=== PATIENT | female | born 1985 | race Caucasian/White ===

== ENCOUNTER → 2024-03-24 17:31 | Outpatient (CLI) | payer OTHER, SELFPAY ==
[2024-03-24 18:59] LABS: Hemoglobin A1C% w Est Avg Glu 4.9 % (4.0-6.0)
[2024-03-24 19:14] LABS: Follicle Stimulating Hormone 7.39 mIU/mL; Luteinizing Hormone 3.88 mIU/mL
[2024-03-24 19:27] LABS: TSH w/ Reflex to FT4 1.37 uIU/mL (0.47-4.68)
[2024-03-24 19:35] LABS: Prolactin 18.5 ng/mL (3.0-18.6)
[2024-04-01 09:09] LABS: Estrogen 94 pg/mL (.)
[2024-04-10 21:00] LABS: % Free Progesterone 2.7 % (.); Free Progesterone 0.95 ng/dL (.); Progesterone, Serum 35 ng/dL (.)
== END ==
PROVIDERS: PCP Family Medicine; Referring Provider Family Medicine; Visit Provider Family Medicine
DX: N97.9 Female infertility, unspecified (principal)
CPT/HCPCS: 36415; 82672; 83001; 83002; 83036; 84144; 84146; 84443; 84999

== ENCOUNTER → 2024-07-05 15:42 | Outpatient (CLI) | payer OTHER, SELFPAY ==
--- NOTE | 2024-07-05 16:00 | DI.US.S_ITS ---
PROCEDURE: US PELVIC COMPLETE INDICATIONS: hx of uterine polyp TECHNIQUE: Real-time scanning was performed of the pelvic organs, with image documentation. Additional endovaginal scanning was necessary due to incomplete visualization of the adnexal and endometrial structures by transabdominal scanning. COMPARISON: None. FINDINGS: Uterus: Uterus is anteverted and normal in size at 7.1 x 4.1 x 3.2 cm. The myometrium is homogeneous without mass. The endometrium measures 8.2 mm combined thickness. No endometrial masses. Normal vascularity. Tiny amount of anechoic fluid in cervix. Normal cervical morphology vascularity. Ovaries: The right ovary measures 3.7 x 2.7 x 1.6 cm, with a calculated ovarian volume of 8.3 cc. The left ovary measures 3.4 x 2.4 x 1.4 cm, with a calculated ovarian volume of 5.9 cc. The ovaries have a normal sonographic appearance. Less than 12 follicles can be seen in each ovary. No adnexal masses are seen. Other: No pathologic free abdominal or pelvic fluid. IMPRESSION: Normal pelvic ultrasound without recurrence endometrial polyp. We strive to produce accurate, complete, and clear reports of imaging services. To assist us in improving patient care, this report was composed using standard report templates and voice recognition software. Therefore, it may contain abnormal punctuation, insertions and/or omissions. Occasional wrong-word or sound-alike substitutions may occur. Though we review the report and make efforts to correct it, we do recommend that the report be read carefully in proper context to recognize any text inaccuracies. Dictated by: Luisa Guajardo M.D. on 07/05/2024 at 22:02 Approved by: Luisa Guajardo M.D. on 07/05/2024 at 22:04
[2024-07-05 16:54] LABS: Add Manual Diff / Slide Review NO; Basophils Absolute Auto 100 /uL (0-100); Basophils Percent Auto 0.7 % (0-2); Eosinophils Absolute Auto 200 /uL (0-450); Eosinophils Percent Auto 1.8 % (2-4); Hematocrit 41.7 % (36-46); Hemoglobin 14.1 g/dL (12.0-16.0); Lymphocytes Absolute Auto 3800 /uL (1100-4500); Lymphocytes Percent Auto 40.5 % (25-40); Mean Corpuscular HGB Conc 33.9 % (30-36); Mean Corpuscular Hemoglobin 30.6 PG (26-34); Mean Corpuscular Volume 90.4 fL (80-100); Monocytes Absolute Auto 700 /uL (0-900); Monocytes Percent Auto 7.8 % (3-14); Neutrophils Absolute Auto 4600 /uL (1500-7000); Neutrophils Percent Auto 49.2 % (50-75); Platelet Count 340 X10^3/uL (150-400); Red Blood Cell Count 4.61 X10^6/uL (4.0-5.2); Red Cell Distribution Width 13.2 % (11.6-14.8); White Blood Cell Count 9.4 X10^3/uL (4.5-11.0)
[2024-07-05 17:22] LABS: Alanine Aminotransferase 22 IU/L (<35); Albumin 4.5 g/dL (3.5-5.0); Albumin Globulin Ratio 1.3 (1.0-2.8); Alkaline Phosphatase 62 U/L (38-126); Aspartate Aminotransferase 31 IU/L (14-36); BUN Creatinine Ratio 8.6 (6-22); Bilirubin Total 0.8 mg/dL (0.2-1.3); Blood Urea Nitrogen 6 mg/dL (7-17); Calcium 9.4 mg/dL (8.4-10.2); Carbon Dioxide 28 mmol/L (22-32); Chloride 98 mmol/L (98-107); Estimated Glomerular Filt Rate > 60 mL/min (>60); Globulin 3.5 g/dL (1.7-4.1); Glucose 86 mg/dL (70-100); HEMOLYSIS < 15 (0-50); Potassium 4.5 mmol/L (3.4-5.1); Sodium 134 mmol/L (137-145)
[2024-07-14 01:08] LABS: Anti Mullerian Hormone 0.932 ng/mL (.)
== END ==
PROVIDERS: PCP Family Medicine; Referring Provider Family Medicine; Visit Provider Family Medicine
DX: N97.9 Female infertility, unspecified (principal); N84.0 Polyp of corpus uteri
CPT/HCPCS: 36415; 76830; 76856; 80053; 82397; 85025

== ENCOUNTER → 2024-10-20 09:53 | Outpatient (CLI) | payer OTHER, SELFPAY ==
--- NOTE | 2024-10-20 09:54 | DI.RAD.S_ITS ---
PROCEDURE: HL HYSTEROSAPINGOGRAPHY INDICATIONS: Infertility COMPARISON: None. FINDINGS: Patient had a documented negative test prior to the study. Following speculum insertion, a balloon-tip catheter was inserted into the cervical canal, and secured by inflating the balloon. Contrast was then injected into the endometrial canal. Uterus: The uterine cavity appears normal in size and morphology, without synechiae or masses. Fallopian tubes: Both fallopian tubes fill with contrast, and appear normal in caliber and morphology. There is ready dispersion of contrast into the peritoneal cavity. IMPRESSION: Patent bilateral fallopian tubes. Dictated by: Bruno Vasquez M.D. on 10/20/2024 at 12:09 Approved by: Bruno Vasquez M.D. on 10/20/2024 at 12:12
--- NOTE | 2024-10-24 13:26 | PM.PROC.1 ---
Procedures Date/Time Date of procedure: 10/20/24 Time of procedure: 10:30 General Procedure description: Hysterosalpingogram After informed consent was obtained, the patient was placed on the fluoroscopy table on an overturned bedpan. A bivalve speculum was placed into vagina. The cervix was cleaned x3 with Betadine. A single-tooth tenaculum was placed on the anterior lip of the cervix. The HSG catheter passed easily into the endometrial cavity. 3 cc of air were injected into the balloon. The bivalve speculum was removed from the vagina. Approximately 18 cc of Isovue-[id number] were injected under direct fluoroscopic examination. The contours of the uterus were normal. There was spill from both tubes immediately. The single-tooth tenaculum was removed from the anterior lip of the cervix. The balloon was deflated and the catheter was removed from the uterus. The patient tolerated the procedure well. Complications: none
== END ==
PROVIDERS: PCP Family Medicine; Referring Provider Obstetrics & Gynecology; Visit Provider Obstetrics & Gynecology
DX: E88.819 Insulin resistance, unspecified (principal); N97.9 Female infertility, unspecified
CPT/HCPCS: 58340; 74740; Q9967

== ENCOUNTER → 2025-06-14 06:32 | Outpatient (ROUT) | payer OTHER, SELFPAY | LOC: LAB 07-23 06:32 | PROVIDERS: PCP Family Medicine; Visit Provider Obstetrics & Gynecology | DX: N84.0 Polyp of corpus uteri (principal) | CPT/HCPCS: 87491; 87563; 87591 ==

== ENCOUNTER → 2025-08-29 15:01 | Outpatient (CLI) | payer OTHER, SELFPAY ==
--- NOTE | 2025-08-29 15:03 | DI.RAD.S_ITS ---
PROCEDURE: XR KNEE STANDING BI INDICATIONS: chronic bilateral knee pain TECHNIQUE: Single AP view of both knees were acquired COMPARISON: None. FINDINGS: Bones: There are no osseous abnormalities. Joints: Mild bilateral tibial femoral degeneration Soft tissues: Normal IMPRESSION: Mild bilateral tibial femoral degeneration Dictated by: Marlo Bautista M.D. on 08/30/2025 at 11:56 Approved by: Marlo Bautista M.D. on 08/30/2025 at 11:57
== END ==
LOC: RAD 15:02
PROVIDERS: PCP Family Medicine; Referring Provider Family Medicine; Visit Provider Family Medicine
DX: M17.0 Bilateral primary osteoarthritis of knee (principal); M25.561 Pain in right knee; M25.562 Pain in left knee; G89.29 Other chronic pain
CPT/HCPCS: 73565